=== PATIENT | female | born 1980 | race Hispanic/Latino ===

== ENCOUNTER 2025-08-10 08:23 | Outpatient (CLI) | payer OTHER | END 2025-08-10 08:24 | disposition home or self-care (01) | LOC: CSHULT 08:23 | PROVIDERS: ATTEND Family Medicine | DX: N92.0 Excessive and frequent menstruation with regular cycle (principal); R93.89 Abnormal findings on diagnostic imaging of other specified body structures | CPT/HCPCS: 76856 ==